=== PATIENT | female | born 1990 | race Caucasian/White ===

== ENCOUNTER 2019-10-01 12:04 | Outpatient (CLI) | payer OTHER | END 2019-10-01 23:59 | disposition critical access hospital (66) | LOC: EMS 12:04 | PROVIDERS: ATTEND Surgery | DX: S09.90XA Unspecified injury of head, initial encounter (principal); R55 Syncope and collapse; R41.0 Disorientation, unspecified; W19.XXXA Unspecified fall, initial encounter; Y92.59 Other trade areas as the place of occurrence of the external cause | CPT/HCPCS: A0425; A0429 ==

== ENCOUNTER 2019-10-01 12:28 | Emergency (ER) | payer OTHER ==
[2019-10-01 13:25] LABS: BASOPHILS # (AUTO) 0.1 10^3/uL (0.0-0.1); BASOPHILS % (AUTO) 0.5 %; EOSINOPHILS # (AUTO) 0.1 10^3/uL (0.0-0.7); EOSINOPHILS % (AUTO) 0.5 %; HGB - HEMOGLOBIN 16.2 g/dL (12.0-16.0); LYMPHOCYTES # (AUTO) 1.6 10^3/uL (1.5-3.5); LYMPHOCYTES % (AUTO) 14.3 %; MEAN CORPUSCULAR HEMOGLOBIN 27.2 pg (27.0-31.0); MEAN CORPUSCULAR HGB CONC 31.8 g/dL (32.0-36.0); MEAN CORPUSCULAR VOLUME 85.6 fL (81.0-99.0); MEAN PLATELET VOLUME 8.8 fL (7.9-10.8); MONOCYTES # (AUTO) 0.7 10^3/uL (0.0-1.0); MONOCYTES % (AUTO) 6.8 %; NEUTROPHILS # (AUTO) 8.4 10^3/uL (1.5-6.6); NEUTROPHILS % (AUTO) 77.3 %; PLT - PLATELET COUNT 316 10^3/uL (130-450); RED BLOOD COUNT 5.96 10^6/uL (4.20-5.40); RED CELL DISTRIBUTION WIDTH 12.9 % (12.0-15.0); WHITE BLOOD COUNT 10.8 x10^3/uL (4.8-10.8)
[2019-10-01] MEDS ORDERED: MORPHINE 2 MG/ML CARPUJECT IVP STA (13:27)
--- NOTE | 2019-10-01 13:29 | ED Physician Documentation ---
PD HPI HEAD INJURY - Stated complaint Stated Complaint: SYNCOPE - Chief complaint Chief Complaint: Neuro - History obtained from History obtained from: Patient (She was walking in a laundromat in high heels, nobody saw it but it sounds like she probably slipped or passed out and hit her head. She was unconscious for 30 to 45 seconds and foaming at the mouth and convulsing. Now feels previous back to normal except for a severe headache and left ankle pain. She has not walked since all this happened.) Review of Systems Ten Systems: 10 systems reviewed and negative Constitutional: denies: Fever, Chills, Fatigue Nose: denies: Rhinorrhea / runny nose, Congestion, Epistaxis Cardiac: denies: Chest pain / pressure, Palpitations GI: denies: Abdominal Pain, Abdominal Swelling, Nausea, Vomiting PD PAST MEDICAL HISTORY - Past Medical History Past Medical History: No : Kidney stones - Past Surgical History Past Surgical History: Yes HEENT: Tonsil/Adenoidectomy - Present Medications Home Medications: Ambulatory Orders Medication Instructions Recorded Confirmed Norgestimate-Ethinyl Estradiol 1 tab ORAL DAILY 03/09/16 03/09/16 [Trinessa Tablet] Ondansetron Odt [Zofran] 4 mg TL Q6H PRN #14 tablet 03/09/16 Hydrocodone/Acetaminophen 1 - 2 each PO Q6H PRN #10 tablet 10/01/19 [Hydrocodon-Acetaminophen 5-325] Ondansetron Odt [Zofran] 4 mg TL Q6H PRN #10 tablet 10/01/19 - Allergies Allergies/Adverse Reactions: Allergies Allergy/AdvReac Type Severity Reaction Status Date / Time No Known Drug Allergies Allergy Verified 10/01/19 12:44 - Social History Does the pt smoke?: No Smoking Status: Never smoker Does the pt drink ETOH?: Yes Does the pt have substance abuse?: No - Immunizations Immunizations are current?: Yes - POLST Patient has POLST: No PD ED PE NORMAL - Vitals Vital signs reviewed: Yes - General General: Alert and oriented X 3, No acute distress - HEENT HEENT: PERRL, EOMI, Other (There is a large contusion on the right forehead). No: Ears normal (1.5 cm laceration on the posterior side of the right ear, soft tissue only not in the cartilage.) - Neck Neck: Supple, no meningeal sign, No bony TTP - Cardiac Cardiac: RRR, No murmur - Respiratory Respiratory: No respiratory distress, Clear bilaterally - Abdomen Abdomen: Non tender - Extremities Extremities: Other (Mild tenderness of the left ATFL, no medial joint line or proximal fibular tenderness. No foot tenderness. Normal pulses in the foot.) - Neuro Neuro: Alert and oriented X 3, Normal speech Results - Vitals Vitals: Vital Signs - 24 hr 10/01/19 10/01/19 10/01/19 12:39 13:44 14:22 Temperature 36.9 C Heart Rate 119 H 82 80 Respiratory 22 17 16 Rate Blood Pressure 126/74 118/93 H 124/74 O2 Saturation 100 100 97 10/01/19 10/01/19 14:40 15:25 Temperature Heart Rate 92 93 Respiratory 20 18 Rate Blood Pressure 118/79 131/93 H O2 Saturation 100 97 Oxygen O2 Source Room air - EKG (time done) 1303 Rate: Rate (enter#) (94) Rhythm: NSR [place]: Normal Intervals: Normal [place] QRS: Normal Ischemia: Normal ST segments Computer interpretation: Agree with computer - Labs Labs: Laboratory Tests 10/01/19 10/01/19 10/01/19 13:10 13:10 13:10 WBC 10.8 RBC 5.96 H Hgb 16.2 H Hct 51.0 H MCV 85.6 MCH 27.2 MCHC 31.8 L RDW 12.9 Plt Count 316 MPV 8.8 Neut # (Auto) 8.4 H Lymph # (Auto) 1.6 [place] # (Auto) 0.7 Eos # (Auto) 0.1 Baso # (Auto) 0.1 Absolute Nucleated RBC 0.00 Nucleated RBC % 0.0 Sodium 139 Potassium 4.0 Chloride 105 Carbon Dioxide 23 Anion Gap 11.0 BUN 9 Creatinine 0.8 Estimated GFR (MDRD) 85 L Glucose 96 Calcium 9.6 Total Bilirubin 0.6 AST 34 ALT 30 Alkaline Phosphatase 75 Troponin I High Sens 5.8 Total Protein 7.2 Albumin 4.2 Globulin 3.0 Albumin/Globulin Ratio 1.4 Lipase 37 Ur Specific [place] Urine HCG, Qual 10/01/19 15:00 WBC RBC Hgb Hct MCV MCH MCHC RDW Plt Count MPV Neut # (Auto) Lymph # (Auto) [place] # (Auto) Eos # (Auto) Baso # (Auto) Absolute Nucleated RBC Nucleated RBC % Sodium Potassium Chloride Carbon Dioxide Anion Gap BUN Creatinine Estimated GFR (MDRD) Glucose Calcium Total Bilirubin AST ALT Alkaline Phosphatase Troponin I High Sens Total Protein Albumin Globulin Albumin/Globulin Ratio Lipase Ur Specific [place] 1.020 Urine HCG, Qual NEGATIVE - Rads (name of study) Ct Head Radiology: EMP read contemporaneously (STS, no frx or ICH) 3v L ankle Radiology: EMP read contemporaneously (no frx) Procedures - Laceration (location) R ear Length in cm: 1.5 Wound type: Linear, Superficial Wound Preparation: Irrigated copiously NS Skin layer closure: Dermabond Other: Tetanus UTD Complexity: Simple PD MEDICAL DECISION MAKING - ED course ED course: 29-year-old woman with either a slip and fall hitting her head with a concussion or syncopal episode with same. Work-up here was negative with negative EKG, test, labs with some mild hemoconcentration, no evidence of severe injury on ankle x-ray or head CT. No ectopy or arrhythmias on the monitor. Departure - Departure Disposition: 01 Home, Self Care Clinical Impression: Concussion Qualifiers: Encounter type: initial encounter Loss of consciousness presence/duration: with LOC of 30 min or less Qualified Code(s): S06.0X1A - Concussion with loss of consciousness of 30 minutes or less, initial encounter Left ankle sprain Qualifiers: Encounter type: initial encounter Involved ligament of ankle: anterior talofibular ligament Qualified Code(s): S93.492A - Sprain of other ligament of left ankle, initial encounter Laceration of right ear Qualifiers: Encounter type: initial encounter Qualified Code(s): S01.311A - Laceration without foreign body of right ear, initial encounter Condition: Good Record reviewed to determine appropriate education?: Yes Instructions: ED Sprain Ankle W X Ray, ED Concussion, ED Laceration Facial Skin Glue Prescriptions: Hydrocodone/Acetaminophen [Hydrocodon-Acetaminophen 5-325] 1 - 2 each PO Q6H PRN #10 tablet PRN Reason: pain Ondansetron Odt [Zofran] 4 mg TL Q6H PRN #10 tablet PRN Reason: Nausea / Vomiting Comments: Call your doctor to arrange a follow-up appointment, make the next available appointment. In the interim, return anytime if worse or if new symptoms develop. Do not drink or drive while taking narcotic pain medication. Note that many narcotic pain relievers also contain Tylenol/acetaminophen. Please ensure that your total dose of acetaminophen from all sources does not exceed 3 g (3000 mg) per day. You may get constipated while on this medication. Take a stool softener such as Colace twice a day while you are on it. Also add an [id number]-khy-jjpuwiy laxative such as senna or MiraLAX on any day that you do not have a bowel movement. If you received a narcotic pain medication or sedative while in the emergency department, do not drive for the next 24 hours. Forms: Activity restrictions
[2019-10-01] MEDS ORDERED: ONDANSETRON 4 MG/2 ML VIAL IVP STA (13:51)
[2019-10-01 14:00] LABS: ALBUMIN 4.2 g/dL (3.2-5.5); ALBUMIN/GLOBULIN RATIO 1.4 (1.0-2.2); BILIRUBIN,TOTAL 0.6 mg/dL (0.2-1.0); CALCIUM 9.6 mg/dL (8.5-10.3); CREATININE 0.8 mg/dL (0.4-1.0); TOTAL PROTEIN 7.2 g/dL (6.7-8.2)
--- NOTE | 2019-10-01 14:06 | XRAY Report ---
Reason: ankle inj Procedure Date: 10/01/2019 Accession Number: [id number] / [id number] Procedure: XR - Ankle 3 View LT CPT Code: Final Report FULL RESULT: EXAM: LEFT ANKLE RADIOGRAPHY EXAM DATE: 10/01/2019 01:56 PM. CLINICAL HISTORY: Ankle inj. COMPARISON: None. TECHNIQUE: 3 views. FINDINGS: Bones: Normal. No fractures or bone lesions. Joints: Normal. No effusion. No subluxations. The ankle mortise is normally aligned. Soft Tissues: Normal. No soft tissue swelling. IMPRESSION: No fracture or dislocation RADIA
[2019-10-01] MEDS ORDERED: HYDROmorphone 1 MG/ML SYRINGE IVP STA (14:22)
--- NOTE | 2019-10-01 14:30 | CT Report ---
Reason: head inj Procedure Date: 10/01/2019 Accession Number: [id number] / [id number] Procedure: CT - HEAD WO CPT Code: Final Report FULL RESULT: EXAM: CT HEAD WITHOUT CONTRAST EXAM DATE: 10/01/2019 02:15 PM. CLINICAL HISTORY: 29-year-old female post head injury. COMPARISON: None. TECHNIQUE: Multiaxial CT images were obtained on an emergent basis, from the foramen magnum to the vertex. Reformats: Sagittal and coronal. IV contrast: None. In accordance with CT protocol optimization, one or more of the following dose reduction techniques were utilized for this exam: automated exposure control, adjustment of mA and/or KV based on patient size, or use of iterative reconstructive technique. FINDINGS: Parenchyma: No intraparenchymal hemorrhage. No evidence of mass, midline shift, or CT findings of infarction. Blair-white differentiation is distinct. Extraaxial Spaces: Normal for age. No subdural or epidural collections identified. Ventricles: Normal in size and position. Sinuses and Orbits: Imaged paranasal sinuses, orbits, and mastoids show no significant abnormality. Bones: No evidence of fracture or calvarial defect. Other: Right anterior lateral head soft tissue swelling, external to the brain. No underlying osseous abnormality. IMPRESSION: Mild soft tissue swelling right frontal lateral head. Otherwise normal, without underlying bone or brain abnormality. RADIA
[2019-10-01 15:25] LABS: HCG UR QUAL NEGATIVE
[2019-10-01 15:26] VITALS: BP 131/93
== END 2019-10-01 15:45 | disposition home or self-care (01) ==
LOC: EDUNIT# → ED 12:28
DX: S06.0X1A Concussion with loss of consciousness of 30 minutes or less, initial encounter (principal); S93.492A Sprain of other ligament of left ankle, initial encounter; S01.311A Laceration without foreign body of right ear, initial encounter; S00.83XA Contusion of other part of head, initial encounter; W18.30XA Fall on same level, unspecified, initial encounter; Y92.29 Other specified public building as the place of occurrence of the external cause
CPT/HCPCS: 12011; 36415; 70450; 73610; 80053; 81025; 83690; 84484; 85025; 93005; 96374; 96375; 99284; J1170